=== PATIENT | male | born 1990 | race Two or more races ===

== ENCOUNTER 2021-12-08 21:19 | Emergency (ER) | payer OTHER ==
[2021-12-08 21:42] LABS: BASOPHILS % (AUTO) 0.6 %; EOSINOPHILS # (AUTO) 0.1 10^3/uL (0.0-0.7); HCT - HEMATOCRIT 43.3 % (42.0-52.0); HGB - HEMOGLOBIN 15.4 g/dL (14.0-18.0); LYMPHOCYTES # (AUTO) 2.1 10^3/uL (1.5-3.5); LYMPHOCYTES % (AUTO) 41.2 %; MEAN CORPUSCULAR HGB CONC 35.6 g/dL (32.0-36.0); MEAN CORPUSCULAR VOLUME 87.1 fL (80.0-94.0); MEAN PLATELET VOLUME 9.6 fL (7.4-11.4); MONOCYTES # (AUTO) 0.7 10^3/uL (0.0-1.0); MONOCYTES % (AUTO) 12.5 %; NEUTROPHILS # (AUTO) 2.3 10^3/uL (1.5-6.6); NEUTROPHILS % (AUTO) 44.5 %; PLT - PLATELET COUNT 307 10^3/uL (130-450); RED BLOOD COUNT 4.97 10^6/uL (4.70-6.10); RED CELL DISTRIBUTION WIDTH 11.9 % (12.0-15.0); WHITE BLOOD COUNT 5.2 x10^3/uL (4.8-10.8)
[2021-12-08 21:52] LABS: ALBUMIN 5.2 g/dL (3.2-5.5); ALBUMIN/GLOBULIN RATIO 1.5 (1.0-2.2); BILIRUBIN,TOTAL 0.5 mg/dL (0.2-1.0); CALCIUM 9.9 mg/dL (8.5-10.3); POTASSIUM 3.7 mmol/L (3.5-5.0); TOTAL PROTEIN 8.7 g/dL (6.7-8.2)
[2021-12-08 23:02] LABS: BILIRUBIN,URINE NEGATIVE (NEGATIVE); GLUCOSE, URINE (UA) NEGATIVE (NEGATIVE); KETONES,URINE (UA) 15 mg/dL (NEGATIVE); LEUKOCYTE ESTERASE, URINE NEGATIVE (NEGATIVE); NITRITE,URINE NEGATIVE (NEGATIVE); OCCULT BLOOD,URINE SMALL (NEGATIVE); PROTEIN,URINE NEGATIVE (NEGATIVE); UROBILINOGEN,URINE 2 E.U./dL (NORMAL)
[2021-12-08 23:10] LABS: CLARITY,URINE CLEAR (CLEAR); WBC,URINE 0-3 /HPF (0-3)
[2021-12-08 23:11] LABS: AMORPHOUS SEDIMENT,UR Rare /LPF; BACTERIA,URINE None Seen /HPF (None Seen); RBC,URINE 0-5 /HPF (0-5); SQUAMOUS EPITHELIAL CELL,UR NONE SEEN (<= Few)
--- NOTE | 2021-12-09 00:22 | ED Physician Documentation ---
PD HPI ABD PAIN - Stated complaint Stated Complaint: ABD PAIN & BLEEDING - Chief complaint Chief Complaint: Abd Pain - History obtained from History obtained from: Patient - History of Present Illness Timing - onset: Today Timing - details: Abrupt onset Pain level now: 1 Quality: Cramping, Pain Location: LLQ Radiation: Other (does not radiate) Associated symptoms: Hematochezia. No: Fever, Nausea, Vomiting, Diarrhea, Constipation Similar symptoms before: Has not had sx before Recently seen: Not recently seen - Additional information Additional information: patient initially describes LLQ pain since earlier today but in the course of obtaining HPI, his chief complaint/concern is BRBPR , episodic since earlier today. He initially noted some blood on toilet paper after bowel movements today, but this evening was fully clothed when he felt bleeding from rectum while seated in a chair. Has not had these symptoms before denies any pain with BM. Review of Systems Constitutional: denies: Fever GI: reports: Abdominal Pain, Bloody / black stool. denies: Nausea, Vomiting, Constipation, Hematemesis PD PAST MEDICAL HISTORY - Past Medical History Past Medical History: No - Present Medications Home Medications: Ambulatory Orders Medication Instructions Recorded Confirmed Hydrocortisone/Pramoxine 1 applic RC BID #10 gm 12/09/21 [Proctofoam-Hc Foam] - Allergies Allergies/Adverse Reactions: Allergies Allergy/AdvReac Type Severity Reaction Status Date / Time No Known Drug Allergies Allergy Verified 12/08/21 21:27 PD ED PE NORMAL - Vitals Vital signs reviewed: Yes - General General: Alert and oriented X 3, No acute distress, Well developed/nourished - Abdomen Abdomen: Normal bowel sounds, Soft, Non tender, Non distended - Derm Derm: Normal color, Warm and dry PD ED PE EXPANDED - Male Male visual: 1 - swelling (mild swelling with linear defect with dried blood but no active bleeding; no tenderness, no fluctuance) Results - Vitals Vitals: Oxygen O2 Source Room air - Labs Labs: Laboratory Tests 12/08/21 12/08/21 12/08/21 21:28 21:35 21:35 WBC 5.2 RBC 4.97 Hgb 15.4 Hct 43.3 MCV 87.1 MCH 31.0 MCHC 35.6 RDW 11.9 L Plt Count 307 MPV 9.6 Neut # (Auto) 2.3 Lymph # (Auto) 2.1 Storey # (Auto) 0.7 Eos # (Auto) 0.1 Baso # (Auto) 0.0 Absolute Nucleated RBC 0.00 Nucleated RBC % 0.0 Sodium 139 Potassium 3.7 Chloride 101 Carbon Dioxide 29 Anion Gap 9.0 BUN 27 H Creatinine 1.0 Estimated GFR (MDRD) 89 Glucose 97 Calcium 9.9 Total Bilirubin 0.5 AST 60 H ALT 77 H Alkaline Phosphatase 76 Total Protein 8.7 H Albumin 5.2 Globulin 3.5 Albumin/Globulin Ratio 1.5 Lipase 28 Urine Color YELLOW Urine Clarity CLEAR Urine pH 7.0 Ur Specific [employer] 1.020 Urine Protein NEGATIVE Urine Glucose (UA) NEGATIVE Urine Ketones 15 H Urine Occult Blood SMALL H Urine Nitrite NEGATIVE Urine Bilirubin NEGATIVE Urine Urobilinogen 2 H Ur Leukocyte Esterase NEGATIVE Urine RBC 0-5 Urine WBC 0-3 Ur Squamous Epith Cells NONE SEEN Amorphous Sediment Rare Urine Bacteria None Seen Ur Microscopic Review INDICATED Urine Culture Comments NOT INDICATED PD MEDICAL DECISION MAKING - ED course Complexity details: considered differential, d/w patient ED course: benign abdominal exam and no concerning findings on blood tests; mild elevations of AST and ALT noted and this was d/w patient. There is a linear defect in the anal mucosa with dried blood but no active bleeding. Given HPI, I suspect hemorrhoid that was bleeding lightly on toilet paper earlier today and tonight was bleeding , possible expulsion of clots, which would explain the minimal swelling on exam. Alternatively considered is anal fissure although the lesion is not tender and he says he has no pain with BM, which would be atypical for anal fissure. Must also consider malignancy though this is unlikely. I discussed this differential with the patient and advised him to follow up with primary care provider for reevaluation of the anal lesion / bleeding, as well as the abnormal LFTs Departure - Departure Disposition: 01 Home, Self Care Clinical Impression: Bleeding hemorrhoid Condition: Good Instructions: ED Hemorrhoids Follow-Up: FARZANA Rodriguez [Provider Group] Prescriptions: Hydrocortisone/Pramoxine [Proctofoam-Hc Foam] 1 applic RC BID #10 gm Comments: On exam, you have a small hemorrhoid which is not actively bleeding but the hemorrhoid has a small opening with dried blood and is almost certainly the source of your bleeding. You should follow up with your primary care provider for reevaluation of this. A prescription for hemorroid medication is provided. Another possible explanation for the finding is an anal fissure; these tend to be very painful, so it is unlikely to be a fissure. The blood tests performed tonight are unremarkable (there were very mild elevations in your liver enzyme tests; this is a coincidental finding, as they are not nearly high enough to be causing any signs or symptoms, but you should mention this finding to your primary care provider , as they might want to repeat these tests). Discharge Date/Time: 12/09/21 00:57
[2021-12-09 00:58] VITALS: BP 140/104
== END 2021-12-09 00:57 | disposition home or self-care (01) ==
LOC: ED 21:19
DX: K64.8 Other hemorrhoids (principal)
CPT/HCPCS: 36415; 80053; 81001; 81003; 83690; 85025; 87086; 99282; 99283

== ENCOUNTER 2023-07-22 12:26 | Emergency (ER) | payer OTHER ==
[2023-07-22 12:37] VITALS: BP 138/87; O2SAT 99
--- NOTE | 2023-07-22 12:50 | ED Physician Documentation ---
PD HPI LOWER EXT INJURY - Stated complaint Stated Complaint: RT CALF PX - Chief complaint Chief Complaint: Trauma Ext - History obtained from History obtained from: Patient - History of Present Illness PD HPI LOW EXT INJURY LOCATION: Right, Calf Type of injury: Twist Where injury occurred: Other (soccer field) Timing - onset: Yesterday (was playing soccer and running, not even quickly, and stopped/pivoted, with abrupt pain in calf.) Timing - duration: Days (1) Timing - details: Abrupt onset, Still present Worsened by: Moving, Other (walking noa push off portion of gait) Associated symptoms: Swelling. No: Weakness, Numbness Similar symptoms before: Has not had sx before PD PAST MEDICAL HISTORY - Past Medical History Past Medical History: No - Past Surgical History Past Surgical History: No - Present Medications Home Medications: Ambulatory Orders Medication Instructions Recorded Confirmed Ibuprofen [Motrin] 600 mg PO TID PRN #30 tab 07/22/23 - Allergies Allergies/Adverse Reactions: Allergies Allergy/AdvReac Type Severity Reaction Status Date / Time No Known Drug Allergies Allergy Verified 07/22/23 12:50 - Social History Does the pt smoke?: No Smoking Status: Never smoker Does the pt drink ETOH?: Yes Does the pt have substance abuse?: No PD ED PE NORMAL - Vitals Vital signs reviewed: Yes - General General: Alert and oriented X 3, No acute distress, Well developed/nourished - Derm Derm: Normal color, Warm and dry - Extremities Extremities: Other (achilles is firm and nontender. dorsifelxion passively hurts in medial calf. plantarflexion causes pain but is still strong. There is a small muscle contour defect medial mid calf that is tender c/w partial muscle bundle tear. ) - Neuro Neuro: No motor deficit, No sensory deficit Results - Vitals Vitals: Vital Signs - 24 hr 07/22/23 12:30 Temperature 36.4 C L Heart Rate 81 Respiratory 18 Rate Blood Pressure 138/87 H O2 Saturation 99 Oxygen O2 Source Room air - Rads (name of study) right tib/fib Relevant Findings:: Prelim report reviewed (no bony abnormality. ), EMP independent interpretation of test PD Medical Decision Making - ED course Complexity details: reviewed results, considered differential (mechanism, symptoms and findings c/w small bundle muscle tear medial gastroc calf muscle. Can give ankle brace to reduce flex/ext. I don't think he needs boot orthosis p er se. Crutches for no/limited weight bearing. Light duty. NSAIDs. Does not involve achilles tendon area. ), d/w patient Departure - Departure Disposition: 01 Home, Self Care Clinical Impression: Gastrocnemius muscle tear Condition: Stable Record reviewed to determine appropriate education?: Yes Instructions: Gastrocnemius Muscle Tear, Gastrocnemius Muscle Tear Exercise Follow-Up: FARZANA Rodriguez [Provider Group] Prescriptions: Ibuprofen [Motrin] 600 mg PO TID PRN #30 tab PRN Reason: Pain Comments: Your x-ray is normal. It does sound and feel like you have a tear of a small bundle of the gastroc muscle in the calf. This typically will heal conservatively with just "being nice" to the calf muscle. It does hurt a lot initially and so use of crutches for partial to no weightbearing and to begin with and also the ankle brace to reduce motion of plantarflexion with walking. Regular use of anti-inflammatory such as ibuprofen 600 100 mg 3 times a day for the next week. Add Tylenol every 4-6 hours as needed for pain. Mostly the pain is from the use of the muscle and the initial swelling. This should decrease in the next couple of days in particular with the crutches and partial weightbearing as well as use of the anti-inflammatories and then just time for any swelling to go down. Sometimes will be bleeding within the muscle and you may develop some bruising of a purple to green coloring even days from now below the injured area or even around the ankle. Follow-up with your primary care in about a 5 to 7 days for reevaluation to decide ongoing restrictions and time duration. Otherwise partial to no weightbearing and no prolonged standing etc. for the next week. Forms: PCP List, Activity restrictions Discharge Date/Time: 07/22/23 13:30
[2023-07-22] MEDS: IBUPROFEN 600 MG TABLET PO STA (13:12)
--- NOTE | 2023-07-22 13:37 | XRAY Report ---
PROCEDURE: Tib/Fib RT INDICATIONS: right calf pain acutely in soccer TECHNIQUE: 2 views of the tibia and fibula were acquired. COMPARISON: None. FINDINGS: Bones: No fractures or dislocations. No suspicious bony lesions. Soft tissues: No suspicious soft tissue calcifications or masses. IMPRESSION: No acute bony abnormality. Reviewed by: Nhan Clarke MD on 07/22/2023 1:36 PM PDT Approved by: Nhan Clarke MD on 07/22/2023 1:36 PM PDT Station ID: [id number]
== END 2023-07-22 13:30 | disposition home or self-care (01) ==
LOC: ED 12:26
DX: S86.811A Strain of other muscle(s) and tendon(s) at lower leg level, right leg, initial encounter (principal); X50.1XXA Overexertion from prolonged static or awkward postures, initial encounter; Y93.66 Activity, soccer
CPT/HCPCS: 73590; 99283; 99284; A9270

== ENCOUNTER 2023-08-24 09:13 | Outpatient (CLI) | payer OTHER ==
--- NOTE | 2023-08-24 09:46 | Sleep Patient Instructions ---
Sleep Center Visit Summary - Patient Visit Information Reason for Visit: Initial consult for evaluation of sleep disordered breathing and other sleep issues. - Patient Instructions Instructions Attached: Sleep Study Additional Instructions: You will be completing a sleep study, either an in-lab polysomnography (PSG) or home sleep study (HST). You will follow-up in the sleep care office after the sleep study is completed to hear the results and talk about therapy, if needed. You will be called by our office staff to schedule this appointment, but you may contact us with any questions. - Clinic Information Contact: [facility] [address] [place] [address] [email or web address] T: [phone]
--- NOTE | 2023-08-24 09:50 | SLEEP CARE CONSULTATION ---
Information from patient questionnaire entered by Jorge Stinson. I have reviewed and concur with the information entered by Jorge Stinson. This document represents the service I personally performed and the decisions made by me, Mireya Nicolas ARNP. History of Present Illness Service Date and Time: 08/24/2023 09 Reason for Visit: New patient Chief Complaint: reports: Unrefreshed sleep, Snoring, Excessive daytime sleepiness, Observed pauses in breathing, Fatigue Date of Onset: 5YRS Usual bedtime: 2833-5703 Time it takes to fall asleep: 20MIN Snores at night: Yes Observed to quit breathing while asleep: Yes Sleeps alone due to snoring: No Number of times waking at night: 3 Reasons for waking at night: reports: Snoring, Gasping for air, Bathroom, Other (NOISE; unknown reasons). denies: Choking Toss, Turn, or Twitch while sleeping: Yes Recalls having dreams: Yes Usually gets out of bed at: 0540 Feels refreshed in the morning: No Morning headache: Yes (1 time a month) Sleepy or fatigued during the day: Yes Ever fallen asleep while driving: No Takes day naps: No Dreams during day naps: Yes Prior sleep studies: No Additional HPI information: I had the pleasure of seeing CANDIDO JULIO today regarding the possibility of him having a sleep disorder. His current complaints are excessive daytime sleepiness, fatigue, observed pauses in breathing, snoring and unrefreshed sleep . He says in general he does not get good sleep. His has encouraged him to seek evaluation because he snores loudly, twitches in his sleep and that he will stop breathing at night. He says he is generally tired during the day. He does not take naps. He says his work in the [employer] has constant changes in his work schedule and sleep schedule. He has woke himself with his own snoring and feeling like he is gasping for air. He will occasionally wake up with a headache but feels this is because he "sleeps wrong" on his neck. - Parasomnia Symptoms Ever been unable to move upon waking from sleep: Yes (long time ago, felt more like a dream) Walks in sleep: No Talks in sleep: Yes Ever acted out dreams in sleep: No Ever felt weak in the knees when startled or emotional: No Bothered by creepy, crawly, restless sensations in legs: Yes Problems with memory or concentration: Yes (concentration mostly, "feels out of it") Subjective Initial [place] Sleepiness Scale score: 17 (08/24/23) Past Medical History Past Medical History: reports: Other (no significant medical history) Social History The patient's occupation is a AM. Patient is and lives in . Have you smoked in the past 12 months: No Alcohol use: Yes Alcohol amount and frequency: 2 BEERS WEEKENDS Caffeine use: Yes Caffeine amount and frequency: ENERGY DRINK/COFFEE EVERYDAY Family History Family history of sleep disordered breathing: Yes Family Hx Sleep Apnea: Father: Snoring, Sleep apnea - Untreated, Grandparent: Snoring, Sleep apnea - Untreated Allergies and Home Medications Known drug allergies: No Drug allergies reviewed: Yes Home medication list reviewed: Yes (as listed) Allergy and home medication list: Allergies No Known Drug Allergies Allergy (Verified 08/22/23 09:24) Home Medications Medication Instructions Recorded Confirmed Last Taken Type Amino Acids [Xymobolx] See Rx Instructions .ROUTE .COMPLEX 08/24/23 08/24/23 Unknown History Red Beet Root/Sour Younger Ext See Rx Instructions .ROUTE .COMPLEX 08/24/23 08/24/23 Unknown History [Beet Root-Tart Younger Gummy] Vitamin B Complex See Rx Instructions .ROUTE .COMPLEX 08/24/23 08/24/23 Unknown History Review of Systems Weight gain over past 5 years: 30, up now Weight loss over past 5 years: 20 Cardiovascular: reports: high blood pressure Gastrointestinal: denies: heartburn Neurological: denies: headaches, head trauma Psychiatric: denies: anxiety, depression Ear/Nose/Throat: denies: injury to nose, tonsillectomy Immunologic: denies: allergies to food or environment Physical Exam Vital signs obtained and entered by: JORGE Yates MA Blood Pressure: 146/91 (RIGHT ARM) Cuff size: regular Heart Rate: 62 O2 Saturation: 99 Height: 5 ft 5 in Weight: 180 lb 9.6 oz Body Mass Index: 30.0 BMI Classification: Obese Neck circumference: 16.25 Nostrils: patent to airflow Mouth and throat: narrow oropharynx Soft palate: long Hard palate: arched Uvula: normal Uvula visualization: 50% Mallampati Class II Tongue: enlarged in size with teeth zamorano on lateral edges Tonsils: 2+ Neck: normal w/o lymphadenopathy or thyromegaly Heart: regular rate and rhythm Lungs: clear bilaterally Impression and Plan 1. Suspected Obstructive Sleep Apnea-Hypopnea Syndrome, as suggested by a history of loud and irregular snoring, observed cessation of breath while asleep, gasping or choking in sleep, morning headache, unrefreshed sleep, cognitive impairment, and excessive daytime sleepiness. Narrow oropharynx and obesity are common predisposing factors for obstructive sleep apnea-hypopnea syndrome. I recommend proceeding to polysomnography to confirm the diagnosis and to assess severity. If the patient has significant sleep disordered breathing, a manual CPAP titration study will also be performed to find the optimal treatment pressure. I informed the patient of what the sleep studies involve and after some discussion, obtained agreement to proceed. The pathophysiology of obstructive sleep apnea-hypopnea syndrome was discussed with the patient and health risks of cardiovascular and cerebrovascular disease if not treated. Risks of drowsy driving discussed in detail and patient advised to avoid long distance driving and to parts puller at the first sign of drowsiness. Patient agreed to plan. * Schedule polysomnography * Avoid long distance driving or driving when feeling sleepy. * Avoid alcohol, sedative and muscle relaxant around bedtime. * Attempt to lose weight. * Review instructions provided by trained office staff on how to prepare for the sleep study. * Return for follow-up after sleep study completed. Counseling Topics: Weight loss health impact Plan: Sleep study and followup Visit Type: In Office Time Spent with Patient (minutes): 30 Provider Statement: I spent 100% of the Face to Face Visit with the patient with greater than 50% spent counseling the patient and coordination of care.
[2023-08-24 09:52] VITALS: BP 146/91; O2SAT 99
== END 2023-08-24 09:14 | disposition home or self-care (01) ==
LOC: SC 09:13
PROVIDERS: ATTEND Nurse Practitioner Family
DX: R06.83 Snoring (principal); R06.81 Apnea, not elsewhere classified; R51.9 Headache, unspecified; G47.8 Other sleep disorders; R41.89 Other symptoms and signs involving cognitive functions and awareness; E66.9 Obesity, unspecified; Z68.30 Body mass index [BMI] 30.0-30.9, adult
CPT/HCPCS: 99203; 99212

== ENCOUNTER 2023-09-07 19:38 | Outpatient (CLI) | payer OTHER | END 2023-09-07 19:39 | disposition home or self-care (01) | LOC: SC 19:38 | PROVIDERS: ATTEND Nurse Practitioner Family | DX: G47.33 Obstructive sleep apnea (adult) (pediatric) (principal) | CPT/HCPCS: 95810 ==

== ENCOUNTER 2023-09-08 19:30 | Outpatient (CLI) | payer OTHER | END 2023-09-08 23:59 | disposition home or self-care (01) | LOC: SC 19:30 | PROVIDERS: ATTEND Nurse Practitioner Family | DX: Z53.9 Procedure and treatment not carried out, unspecified reason (principal) | CPT/HCPCS: 95810 ==

== ENCOUNTER 2023-11-24 13:40 | Outpatient (CLI) | payer OTHER ==
--- NOTE | 2023-11-24 14:41 | Sleep Patient Instructions ---
Sleep Center Visit Summary - Patient Visit Information Reason for Visit: Sleep study follow-up - Patient Instructions Instructions Attached: CPAP Additional Instructions: You are being started on CPAP therapy with pressure setting at 4-15 cmH2O. You will need to call the sleep care office to set up your follow up once you have your CPAP machine to check compliance and response to therapy at that time. You may call the office with any concerns about pressure feeling too low or too much for adjustment, if needed. You should contact DME supplier for any questions or concerns about mask or equipment. Please call office to schedule a follow up appointment in the sleep care office one month after obtaining new device. - Clinic Information Contact: [facility] [address] [place] [address] [email or web address] T: [phone]
--- NOTE | 2023-11-24 14:43 | SLEEP CARE CONSULTATION ---
Information from patient questionnaire entered by Yulisa Stinson. I have reviewed and concur with the information entered by Yulisa Stinson. This document represents the service I personally performed and the decisions made by me, Mireya Nicolas ARNP. History of Present Illness Service Date and Time: 11/24/2023 1340 Accompanied by: Spouse (Sammie) Initial [place] Sleepiness Scale score: 17 (08/24/23) Current [place] Sleepiness Scale score: 16 (11/24/23) Additional HPI information: CANDIDO JULIO returns for follow up and results of the recently performed polysomnography. The sleep study done on 09/17/2023 showed severe obstructive sleep apnea with an average AHI of 41.2 and sher oxygen saturation of 81%. I explained the pathophysiology behind obstructive sleep apnea. We then spent quite a bit of time discussing different treatment options. For mild obstructive sleep apnea, surgery and oral appliance are alternatives to nasal CPAP therapy but in moderate or severe cases, nasal CPAP is the most effective and reliable treatment. I reviewed the impact of weight changes on sleep apnea and strongly recommended losing weight. After some discussion, the patient opted to go with the nasal CPAP therapy. Nasal autoCPAP set at 4-15 cmH20 will be ordered with rationale explained. A manual titration study will be ordered if unable to find optimal pressure with office adjustments. I explained how CPAP machine works and what to expect when using the machine. Using CPAP every night in order to get used to it was emphasized. Patient advised to put CPAP mask on before getting into bed so as not to fall asleep without CPAP. To assist acclimation to CPAP use, it could also be used for a short time during day while reading or watching TV. The patient was instructed to call the CPAP supplier to discuss any mechanical problem that may occur. If the mask given is uncomfortable or is difficult to keep on through the night even with adjustment, contact the CPAP supplier as many will replace with another mask style if notified before 30 days. If snoring or perceives is not getting enough air or too much air from the machine, notify this office. Patient counseled not drink alcohol less than 4 hours before bedtime as it can increase snoring and apnea. Patient was cautioned about risks of drowsy driving until sleepiness symptoms resolve. Patient denies drowsy driving. Sleep Study - Results Type of Sleep Study: Polysomnography (COMPLETED 09/07/23) Prior sleep studies: No Polysomnography/Home Sleep Study results: IMPRESSION: The quality of the study is good. The patient had normal sleep efficiency. The sleep architecture was abnormal for sleep fragmentation and reduced amount of time spent in slow wave sleep (N3). Respiratory monitoring showed severe obstructive sleep apnea-hypopnea (AHI = 41.2) associated with frequent arousals, oxyhemoglobin desaturation and mild hypoxia (sher oxygen saturation of 81%). The patient only slept supine during this study (supine AHI = 41.2; non-supine = 0.00). Snore was light to loud in intensity. There was no significant periodic leg movement of sleep. Cardiac rhythm was normal sinus rhythm without significant arrhythmia. No abnormal behavior (parasomnia) observed during the night. Allergies and Home Medications Known drug allergies: No Drug allergies reviewed: Yes Home medication list reviewed: Yes (no changes) Allergy and home medication list: Allergies No Known Drug Allergies Allergy (Verified 11/24/23 13:45) Review of Systems Review of systems same as previous: Yes (no changes) Physical Exam Vital signs obtained and entered by: YULISA aYtes MA Blood Pressure: 143/91 (LEFT ARM) Cuff size: regular Heart Rate: 76 O2 Saturation: 98 Height: 5 ft 5 in Weight: 175 lb Body Mass Index: 29.1 BMI Classification: Overweight Impression and Plan 1. Obstructive Sleep Apnea-Hypopnea Syndrome, severe, with lowest oxygen saturation of 81%. Obviously this is the cause of the patients symptoms of unrefreshed sleep, and excessive daytime sleepiness. As mentioned above, the patient will be started on nasal autoCPAP therapy with pressure set at 4-15 cmH2 O. A manual titration study will be completed if unable to find optimal treatment pressure with office adjustments. Compliance guidelines also reviewed. A copy of compliance guidelines will be given for reference at check out. Because the apnea is more severe supine, I instructed to avoid sleeping supine using pillow positioning until able to start CPAP use. 2. Hypoxemia, mild, with a sher oxygen saturation of 81% and 13.7 minutes spent under 90%. The baseline oxygen saturation was normal with an average oxygen saturation of 93%. 3. Overweight, unspecified. Currently patients BMI is 29.1. Obesity increases the risk of apnea, CPAP pressure requirements and overall health risks es pecially cardiovascular and diabetes. Thus patient is advised to lose weight. * Nasal auto CPAP therapy, pressure at 4-15 cm H2O. * Attempt to lose weight. * Avoid alcohol consumption near bedtime. * Avoid supine sleep until using CPAP. * The patient is again cautioned about driving until sleepiness completely resolves. * Return one month after CPAP obtained. I will assess response to therapy and compliance at that time. Counseling Topics: Weight loss health impact Prescriptions: Auto CPAP Follow up with Sleep Care in: other (compliance follow up) Visit Type: In Office Time Spent with Patient (minutes): 21 Provider Statement: I spent 100% of the Face to Face Visit with the patient with greater than 50% spent counseling the patient and coordination of care.
[2023-11-24 14:47] VITALS: BP 143/91; O2SAT 98
== END 2023-11-24 13:41 | disposition home or self-care (01) ==
LOC: SC 13:40
PROVIDERS: ATTEND Nurse Practitioner Family
DX: G47.33 Obstructive sleep apnea (adult) (pediatric) (principal); R09.02 Hypoxemia; E66.3 Overweight; Z68.29 Body mass index [BMI] 29.0-29.9, adult
CPT/HCPCS: 99212; 99213